=== PATIENT | female | born 1960 | race Hispanic/Latino ===

== ENCOUNTER 2020-02-08 15:45 | Outpatient (CLI) | payer BC ==
--- NOTE | 2020-02-08 17:18 | Mammography Report ---
LEFT DIGITAL DIAGNOSTIC MAMMOGRAM WITH CAD WITHOUT TOMOSYNTHESIS 02/08/2020 LEFT LIMITED BREAST ULTRASOUND INDICATION: Abnormal screening mammogram TECHNIQUE: Digital left mammographic imaging was performed. Spot compression views were obtained. Li mited ultrasound was performed. This examination was interpreted with the benefit of Computer-Aided D etection (CAD) analysis. COMPARISON: Screening mammography 01/12/2020, 01/06/2019, 01/01/2018, 01/01/2017, 12/28/2015 Breast Density: The breasts are heterogeneously dense, which may obscure small masses. FINDINGS: MAMMOGRAPHIC FINDINGS: The density in the upper outer left breast improves in appearance with spot co mpression views. On cc spot compression view there is still a suggestion of density in this area with possible mild distortion. This is much more difficult to appreciate on MLO and ML views. Appearance on cc view is mildly changed from multiple prior comparison studies. ULTRASOUND FINDINGS: Targeted ultrasound evaluation was performed of the area of interest. In the 2:0 0 position centrally roughly corresponding to the area in question on mammography, a vague approximat marcell 6 mm hypoechoic area is seen without vascularity or shadowing. Borders are irregular. I observe t his real-time with the technologist and there also was a suggestion this was just a fibrocystic breas t lobule though appears slightly more hypoechoic than adjacent lobular areas. IMPRESSION: In general the density seen on mammography significantly improved. There is subtle residu al density with possible distortion and a single view only however. The ultrasound findings are mildl y concerning. I have a low suspicion for malignancy. Follow up recommendation: In view of the combination of findings I believe it may be prudent to perfo rm ultrasound-guided biopsy. BI-RADS Category 4: Suspicious for Malignancy. A "normal" or negative report should not discourage follow up or biopsy of a clinically significant f inding. A written summary of these findings will be mailed to the patient. The patient will be entered into a mammography reporting system which will generate a reminder letter for the patient's next appointmen t at the appropriate interval. According to the [employer], yearly mammograms are recommended starting at age 40 and continuing as long as a woman is in good health. Breast MRI is recommended for women with an silvia roximately 20-25% or greater lifetime risk of breast cancer, including women with a strong family his tory of breast or ovarian cancer and women who have been treated for Hodgkin's disease. Signer Name: Abner Johnson MD Signed: 02/08/2020 5:13 PM Workstation Name: [id number]
== END 2020-02-08 15:46 | disposition home or self-care (01) ==
LOC: SPVWC 15:45
PROVIDERS: ATTEND Surgery
DX: R92.8 Other abnormal and inconclusive findings on diagnostic imaging of breast (principal)

== ENCOUNTER 2020-02-23 12:36 | Outpatient (CLI) | payer BC ==
--- NOTE | 2020-02-23 14:35 | Ultrasound Report ---
ULTRASOUND-GUIDED CORE NEEDLE BIOPSY Left BREAST WITH CLIP PLACEMENT INDICATION: Left breast lesion at the 2:00 position. FINDINGS: Informed consent was obtained. The lesion in the left breast at the 2:00 periareolar location was ksenia ntified with ultrasound. The overlying skin was cleansed with chloro prep and local anesthesia was ob tained with a 1% lidocaine solution. Under ultrasound guidance a 14-gauge spring loaded core biopsy n eedle was advanced to the lesion. A total of 5 core samples were obtained. A U-shaped biopsy marker w as placed to angel the site of the biopsy. Specimen samples were placed in formalin and sent to [facility] for analysis. Patient tolerated the procedure well and no immediate complications were identified. A post procedure mammogram demonstrates biopsy marker located slightly anterior to a previously noted mammographic fi nding. IMPRESSION: Technically successful ultrasound guided biopsy of left breast lesion at the 2:[address] ment of a U-shaped biopsy marker. The biopsy marker is located slightly anterior to a previously noted mammographic finding. However th e initial mammographic finding was felt to largely effaces on the subsequent diagnostic mammographic views and no additional sonographic finding was identified on 02/08/2020 exam. If biopsy results are be nign, a six-month follow-up left breast diagnostic mammogram would be recommended with attention to t he initial mammographic finding which was noted on 01/12/2020 exam. An addendum will be added to this report at a later date once pathology results are available. Signer Name: Tien Herrera MD Signed: 02/23/2020 2:30 PM Workstation Name: [id number]
--- NOTE | 2020-02-23 14:37 | Mammography Report ---
LEFT DIAGNOSTIC MAMMOGRAM INDICATION: Left breast 2:00 biopsy. COMPARISON: 02/08/2020, 01/12/2020. FINDINGS: Left CC and LM views were obtained. These document the location of a U shaped biopsy marker in the le ft 2:00 periareolar breast. The biopsy marker is slightly anterior to the initial mammographic findin g noted on 01/12/2020 exam. However, subsequent diagnostic exam performed 02/08/2020 showed no definite r esidual mammographic or sonographic correlate. IMPRESSION: Left breast mammographic images documenting location of a U shaped biopsy marker in the left 2:00 per iareolar breast. The biopsy marker is located slightly anterior to the initial mammographic finding noted on 01/12/2020 exam. However, subsequent diagnostic exam performed 02/08/2020 showed no definite residual mammographic or sonographic correlate. As a conservative measure, a six-month follow-up left breast diagnostic ma mmogram would be recommended if the biopsy results are benign. BI-RADS Category 4: Suspicious for Malignancy. Signer Name: Tien Herrera MD Signed: 02/23/2020 2:33 PM Workstation Name: [id number]
== END 2020-02-23 12:37 | disposition home or self-care (01) ==
LOC: SPVWC 12:36
PROVIDERS: ATTEND Surgery
DX: N63.21 Unspecified lump in the left breast, upper outer quadrant (principal); R92.8 Other abnormal and inconclusive findings on diagnostic imaging of breast; D24.2 Benign neoplasm of left breast; N60.82 Other benign mammary dysplasias of left breast
CPT/HCPCS: 88305; 88342